=== PATIENT | female | born 1990 ===

== ENCOUNTER → 2021-12-04 | Day surgery (SDC) | payer OTHER ==
[~2021-12-04] VITALS: Ht 149.9 cm; Wt 59.0 kg
[~2021-12-04] MED LIST: BUSPAR5 MG PO; DAILY VALUE1 EACH PO; MELATONIN5 M2 PO; SEROQUEL 100MG100 MG PO; VITAMIN D3 PO; WELLBUTRIN XL150 MG PO
[2021-12-04 10:51] LABS: HCG (URINE) SCREEN NEGATIVE (NEGATIVE)
[2021-12-04 10:53] LABS: AMPHETAMINES NEGATIVE (NEGATIVE); BARBITURATES NEGATIVE (NEGATIVE); ECSTASY (MDMA) NEGATIVE (NEGATIVE); MARIJUANA (THC) NEGATIVE (NEGATIVE); METHADONE NEGATIVE (NEGATIVE); OPIATES NEGATIVE (NEGATIVE); OXYCODONE NEGATIVE (NEGATIVE)
[2021-12-04 11:14] LABS: EOSINOPHIL 2.3 % (0-5); HCT 37.5 % (37.0-47.0); HGB 12.9 g/dl (12.5-16.0); LYMPHOCYTE 31.4 % (15-48); MCH 31.7 pg (25.0-31.0); MCHC 34.4 g/dL (32.0-36.0); MCV 92.1 fL (78.0-100.0); MONOCYTE 7.4 % (0-12); MPV 10.5 fL (6.0-9.5); NEUTROPHIL 57.6 % (41-80); NRBC 0; PLT 181 K/uL (150-400); RBC 4.07 M/uL (4.20-5.40); RDW 12.9 % (11.5-14.0); WBC 6.1 K/uL (4.0-10.5)
== END | disposition home or self-care (01) ==
LOC: FAS 10:10
PROVIDERS: Oral & Maxillofacial Surgery
DX: K02.9 Dental caries, unspecified (principal); K04.7 Periapical abscess without sinus; Z88.0 Allergy status to penicillin; Z88.1 Allergy status to other antibiotic agents; F41.9 Anxiety disorder, unspecified; F32.A Depression, unspecified; F43.10 Post-traumatic stress disorder, unspecified
CPT/HCPCS: D7140 ×15; D7210 ×14; D7310; 36415; 80305; 84703; 85025; J1100; J1885; J2250; J2405; J2704; J3010; J7120